=== PATIENT | male | born 1950 | race Caucasian/White ===

== ENCOUNTER 2018-12-18 09:57 | Inpatient (IN) | payer MEDICARE, BC ==
[~2018-12-18 09:57] MED LIST: CEFAZOLIN 1 GM INJ; EPHEDrine 25 MG/5 ML SYG; FENTAnyl 50 MCG/ML VIAL; METOCLOPRAMIDE 10 MG INJ; MIDAZOLAM 1 MG/ML 2 ML INJ; ONDANSETRON 4 MG INJ; PHENYLephrine (100 MCG/ML) 10ML SYG; PROPOFOL 200 MG INJ; ROCURONIUM 50 MG INJ; SUCCINYLCHOLINE CHLORIDE 100 MG/5 ML SYG IV
[2018-12-18] MEDS: LACTATED RINGER'S 1,000 ML IV* (10:00)
[2018-12-18] MEDS: VANCOMYCIN 1 GM 250 ML IVPB (11:30)
[2018-12-18] MEDS ORDERED: GELATIN SIZE 100 SPONGE (11:56)
[2018-12-18] MEDS: D5W-0.45 NACL + KCL 20 MEQ 1,000 ML IV ×2 (12:37→20:37)
[2018-12-18] MEDS ORDERED: VANCOMYCIN 1 GM (PMX) 250 ML IVPB (13:00)
[2018-12-18] MEDS ORDERED: ONDANSETRON 4 MG INJ IV (13:00)
[2018-12-18] MEDS ORDERED: NALOXONE (0.4 MG/ML) INJ IV (13:00)
[2018-12-18] MEDS ORDERED: BISACODYL 10 MG SUPP PR (13:00)
[2018-12-18] MEDS ORDERED: ACETAMINOPHEN 325 MG TAB PO (13:00)
[2018-12-18] MEDS ORDERED: AL HYDROX/MG HYDROX/SIMETH 30 ML CUP PO (13:00)
[2018-12-18] MEDS ORDERED: DIPHENHYDRAMINE 25 MG CAP PO (13:00)
[2018-12-18] MEDS ORDERED: HYDROmorphONE 0.5 MG/0.5 ML SYG IV (13:00)
[2018-12-18] MEDS ORDERED: DIPHENHYDRAMINE 50 MG INJ IV ×2 (13:00→15:00)
[2018-12-18] MEDS ORDERED: FENTAnyl 50 MCG/ML VIAL (13:02)
[2018-12-18] MEDS ORDERED: LABETALOL HCL 20MG INJ (13:02)
[2018-12-18] MEDS: BUPIVACAINE 0.25%/EPI (SDV) 30 ML INJ (13:32)
[2018-12-18] MEDS: POLYMYXIN/BACITRACIN 1L IRRIG (13:42)
[2018-12-18] MEDS: THROMBIN (BOVINE) 5,000 UNIT VIAL TP (13:43)
[2018-12-18] MEDS: SURGIFOAM POWDER 1 GM KIT (13:43)
[2018-12-18] MEDS ORDERED: KETOROLAC 30 MG INJ (14:22)
[2018-12-18] MEDS ORDERED: ONDANSETRON 4 MG INJ (14:22)
[2018-12-18] MEDS ORDERED: METOCLOPRAMIDE 10 MG INJ (14:22)
[2018-12-18] MEDS ORDERED: DEXAMETHASONE 4 MG/ML 5 ML INJ (14:22)
[2018-12-18] MEDS ORDERED: SUGAMMADEX SODIUM 200 MG/2 ML VIAL IV (14:48)
[2018-12-18] MEDS ORDERED: LABETALOL HCL 20MG INJ IV (15:00)
[2018-12-18] MEDS ORDERED: OXYCODONE/ACETAMINOPHEN (5/325) TAB PO (15:00)
[2018-12-18] MEDS ORDERED: FENTAnyl 50 MCG/ML VIAL IV ×2 (15:00)
[2018-12-18] MEDS ORDERED: METOCLOPRAMIDE 10 MG INJ IV (15:00)
[2018-12-18] MEDS ORDERED: hydrALAzine 20 MG INJ IV (15:00)
[2018-12-18] MEDS ORDERED: HYDROmorphONE 1 MG/5 ML IV SYRINGE IV ×3 (15:00)
[2018-12-18] MEDS ORDERED: EPHEDrine SULFATE 50 MG/5 ML SYG IV (15:00)
[2018-12-18] MEDS: MEPERIDINE 25 MG INJ IV (16:15)
[2018-12-18] MEDS: ONDANSETRON 4 MG INJ IV (16:44)
[2018-12-18] MEDS: FENTAnyl 50 MCG/ML VIAL IV (16:45)
[2018-12-18] MEDS: HYDROmorphONE 0.2 MG/ML PCA IV (16:54)
[2018-12-18] MEDS: DOCUSATE SODIUM 100 MG CAP PO (20:37)
[2018-12-18] MEDS: CEPASTAT LOZENGE MT (20:37)
[2018-12-18] MEDS ORDERED: DOCUSATE SODIUM 100 MG CAP PO (21:00)
[2018-12-18] MEDS: MIRTAZAPINE 15 MG TAB PO (23:03)
[2018-12-18] MEDS: GABAPENTIN 300 MG CAP PO (23:03)
[2018-12-18] MEDS: VANCOMYCIN 1 GM (PMX) 250 ML IVPB (23:04)
[2018-12-18] MEDS: ATORVASTATIN 10 MG TAB PO (23:57)
[2018-12-19] MEDS: HYDROmorphONE 0.2 MG/ML PCA IV ×3 (03:40→22:32)
[2018-12-19] MEDS: PANTOPRAZOLE (EC) 40 MG TAB PO (04:44)
[2018-12-19] MEDS: LEVOTHYROXINE 125 MCG TAB PO (04:45)
[2018-12-19 05:08] LABS: ADD MAN DIFF? NO
[2018-12-19 05:11] LABS: BASOPHILS % 0.3 % (0.0-2.0); EOSINOPHILS # 0.1 10^3/ul (0.0-0.5); EOSINOPHILS % 0.8 % (0.0-7.0); HEMATOCRIT 33.8 % (42.0-52.0); HEMOGLOBIN 11.4 g/dl (14.0-18.0); LYMPHOCYTES # 1.1 10^3/ul (0.8-2.9); MEAN CORPUSCULAR HEMOGLOBIN 31.2 pg (29.0-33.0); MEAN CORPUSCULAR HGB CONC 33.7 g/dl (32.0-37.0); MEAN CORPUSCULAR VOLUME 92.6 fl (82.0-101.0); MEAN PLATELET VOLUME 8.6 fl (7.4-10.4); MONOCYTE # 0.8 10^3/ul (0.3-0.9); MONOCYTES % 10.9 % (0.0-11.0); NEUTROPHIL # 5.7 10^3/ul (1.6-7.5); NEUTROPHILS % 73.7 % (39.0-77.0); PLATELET COUNT 160 10^3/UL (140-415); RED BLOOD COUNT 3.65 10^6/ul (4.70-6.10); RED CELL DISTRIBUTION WIDTH 14.1 % (11.5-14.5)
[2018-12-19 05:11] LABS: WHITE BLOOD COUNT 7.7 10^3/ul (4.8-10.8)
[2018-12-19 05:36] LABS: ANION GAP 2 (5-13); BLOOD UREA NITROGEN 22 mg/dl (7-20); CALCIUM 8.4 mg/dl (8.4-10.2); CARBON DIOXIDE 31 mmol/L (21-31); CHLORIDE 107 mmol/L (97-110); CREATININE 0.79 mg/dl (0.61-1.24); Estimated GFR > 60 mL/min (>60); GLUCOSE 117 mg/dl (70-220); POTASSIUM 4.4 mmol/L (3.5-5.1); SODIUM 140 mmol/L (135-144)
[2018-12-19] MEDS ORDERED: DESFLURANE 15 MIN (07:00)
[2018-12-19] MEDS ORDERED: CA CHLORIDE (GM) 10% 10 ML INJ (07:03)
[2018-12-19] MEDS ORDERED: CEFAZOLIN 1 GM INJ ×2 (07:03→07:09)
[2018-12-19] MEDS ORDERED: POLYMYXIN/BACITRACIN 1L IRRIG (07:03)
[2018-12-19] MEDS ORDERED: ROCURONIUM 50 MG INJ (07:09)
[2018-12-19] MEDS ORDERED: GLYCOPYRROLATE 0.4 MG INJ (07:09)
[2018-12-19] MEDS ORDERED: PROPOFOL 20 ML (07:09)
[2018-12-19] MEDS ORDERED: NEOSTIGMINE 3 MG/3 ML SYRINGE (07:09)
[2018-12-19] MEDS ORDERED: MIDAZOLAM 1 MG/ML 2 ML INJ (07:10)
[2018-12-19] MEDS ORDERED: DEXAMETHASONE 4 MG/ML 5 ML INJ (07:10)
[2018-12-19] MEDS ORDERED: ONDANSETRON 4 MG INJ (07:10)
[2018-12-19] MEDS ORDERED: MIDAZOLAM 1 MG/ML 2 ML INJ IV (07:30)
[2018-12-19] MEDS ORDERED: HYDROmorphONE 1 MG/5 ML IV SYRINGE IV ×3 (07:30)
[2018-12-19] MEDS ORDERED: IPRATROPIUM (NEB) 0.5 MG/2.5 ML AMP HHN (07:30)
[2018-12-19] MEDS ORDERED: DIPHENHYDRAMINE 50 MG INJ IV (07:30)
[2018-12-19] MEDS ORDERED: TRIMETHOBENZAMIDE 100 MG/ML VIAL IM (07:30)
[2018-12-19] MEDS ORDERED: OXYCODONE/ACETAMINOPHEN (5/325) TAB PO ×2 (07:30)
[2018-12-19] MEDS ORDERED: FENTAnyl 50 MCG/ML VIAL IV ×2 (07:30)
[2018-12-19] MEDS ORDERED: LABETALOL HCL 20MG INJ IV (07:30)
[2018-12-19] MEDS ORDERED: hydrALAzine 20 MG INJ IV (07:30)
[2018-12-19] MEDS ORDERED: ALBUTEROL 0.083% (NEB) 2.5 MG/3 ML AMP HHN (07:30)
[2018-12-19] MEDS ORDERED: EPHEDrine SULFATE 50 MG/5 ML SYG IV (07:30)
[2018-12-19] MEDS: D5W-0.45 NACL + KCL 20 MEQ 1,000 ML IV ×3 (08:37→20:18)
[2018-12-19] MEDS ORDERED: hydrALAzine 20 MG INJ (08:37)
[2018-12-19] MEDS: ARIPIPRAZOLE 5 MG TAB PO (09:00)
[2018-12-19] MEDS: DOCUSATE SODIUM 100 MG CAP PO ×2 (09:00→20:19)
[2018-12-19] MEDS: GABAPENTIN 300 MG CAP PO ×2 (09:00→20:20)
[2018-12-19] MEDS: BUPIVACAINE 0.25%/EPI (SDV) 30 ML INJ (09:24)
[2018-12-19] MEDS: GELATIN SIZE 100 SPONGE (09:24)
[2018-12-19] MEDS: HEPARIN 1000 UNITS/ML 10 ML INJ (09:24)
[2018-12-19] MEDS: THROMBIN (BOVINE) 5,000 UNIT VIAL TP ×3 (09:25→12:19)
[2018-12-19] MEDS: VANCOMYCIN 1 GM INJ (09:25)
[2018-12-19] MEDS: SURGIFOAM POWDER 1 GM KIT ×2 (09:26→12:18)
[2018-12-19] MEDS: VANCOMYCIN 1 GM (PMX) 250 ML IVPB ×2 (11:00→20:19)
[2018-12-19] MEDS ORDERED: ALBUMIN HUMAN 5% 500 ML (13:19)
[2018-12-19] MEDS ORDERED: SUGAMMADEX SODIUM 200 MG/2 ML VIAL IV (13:35)
[2018-12-19] MEDS ORDERED: METOCLOPRAMIDE 10 MG INJ (13:37)
[2018-12-19] MEDS ORDERED: ACETAMINOPHEN 325 MG TAB PO (14:00)
[2018-12-19] MEDS ORDERED: NALOXONE (0.4 MG/ML) INJ IV (14:00)
[2018-12-19] MEDS ORDERED: VANCOMYCIN 1 GM (PMX) 250 ML IVPB (14:00)
[2018-12-19] MEDS: MEPERIDINE 25 MG INJ IV (14:09)
[2018-12-19] MEDS: ONDANSETRON 4 MG INJ IV (14:10)
[2018-12-19] MEDS: FENTAnyl 50 MCG/ML VIAL IV ×2 (14:27→14:32)
[2018-12-19] MEDS: MIRTAZAPINE 15 MG TAB PO (20:20)
[2018-12-19] MEDS: ATORVASTATIN 10 MG TAB PO (20:20)
[2018-12-19] MEDS: CYCLOBENZAPRINE 10 MG TAB PO (21:43)
[2018-12-19] MEDS: LORAZEPAM 1 MG TAB PO (22:09)
[2018-12-19] MEDS: HYDROmorphONE 0.5 MG/0.5 ML SYG IV (22:20)
[2018-12-20] MEDS: LEVOTHYROXINE 125 MCG TAB PO (05:20)
[2018-12-20] MEDS: PANTOPRAZOLE (EC) 40 MG TAB PO (05:20)
[2018-12-20 05:22] LABS: ADD MAN DIFF? NO
[2018-12-20] MEDS: HYDROmorphONE 0.2 MG/ML PCA IV ×5 (05:22→23:22)
[2018-12-20 05:27] LABS: BASOPHILS % 0.4 % (0.0-2.0); EOSINOPHILS # 0.2 10^3/ul (0.0-0.5); EOSINOPHILS % 2.4 % (0.0-7.0); HEMATOCRIT 29.8 % (42.0-52.0); HEMOGLOBIN 9.7 g/dl (14.0-18.0); LYMPHOCYTES # 1.2 10^3/ul (0.8-2.9); LYMPHOCYTES % 14.4 % (15.0-51.0); MEAN CORPUSCULAR HEMOGLOBIN 31.1 pg (29.0-33.0); MEAN CORPUSCULAR HGB CONC 32.6 g/dl (32.0-37.0); MEAN CORPUSCULAR VOLUME 95.5 fl (82.0-101.0); MONOCYTE # 0.9 10^3/ul (0.3-0.9); MONOCYTES % 10.8 % (0.0-11.0); NEUTROPHILS % 71.5 % (39.0-77.0); PLATELET COUNT 135 10^3/UL (140-415); RED BLOOD COUNT 3.12 10^6/ul (4.70-6.10); RED CELL DISTRIBUTION WIDTH 14.7 % (11.5-14.5)
[2018-12-20 05:27] LABS: WHITE BLOOD COUNT 8.4 10^3/ul (4.8-10.8)
[2018-12-20 05:42] LABS: ANION GAP 2 (5-13); BLOOD UREA NITROGEN 14 mg/dl (7-20); CALCIUM 8.3 mg/dl (8.4-10.2); CARBON DIOXIDE 32 mmol/L (21-31); CHLORIDE 105 mmol/L (97-110); CREATININE 0.84 mg/dl (0.61-1.24); Estimated GFR > 60 mL/min (>60); GLUCOSE 122 mg/dl (70-220); MAGNESIUM 1.8 mg/dl (1.7-2.5); POTASSIUM 4.1 mmol/L (3.5-5.1); SODIUM 139 mmol/L (135-144)
[2018-12-20] MEDS: GABAPENTIN 300 MG CAP PO ×2 (09:24→20:30)
[2018-12-20] MEDS: DOCUSATE SODIUM 100 MG CAP PO ×2 (09:24→20:32)
[2018-12-20] MEDS: ARIPIPRAZOLE 5 MG TAB PO (09:24)
[2018-12-20] MEDS: D5W-0.45 NACL + KCL 20 MEQ 1,000 ML IV ×2 (09:24→19:57)
[2018-12-20] MEDS: VANCOMYCIN 1 GM (PMX) 250 ML IVPB (09:24)
[2018-12-20] MEDS: TESTOSTERONE 1% GEL 5 GM PACKET TOP (09:25)
[2018-12-20] MEDS: MODAFINIL 200 MG TAB PO (12:00)
[2018-12-20] MEDS: ONDANSETRON 4 MG INJ IV (17:21)
[2018-12-20] MEDS: CYCLOBENZAPRINE 10 MG TAB PO (18:57)
[2018-12-20] MEDS: MIRTAZAPINE 15 MG TAB PO (20:30)
[2018-12-20] MEDS: ATORVASTATIN 10 MG TAB PO (20:31)
[2018-12-20] MEDS: DIPHENHYDRAMINE 25 MG CAP PO (20:31)
[2018-12-20] MEDS: LORAZEPAM 1 MG TAB PO (23:19)
[2018-12-21] MEDS: CEPASTAT LOZENGE MT (04:54)
[2018-12-21] MEDS: PANTOPRAZOLE (EC) 40 MG TAB PO (04:55)
[2018-12-21] MEDS: CYCLOBENZAPRINE 10 MG TAB PO ×2 (04:55→12:55)
[2018-12-21] MEDS: LEVOTHYROXINE 125 MCG TAB PO (05:00)
[2018-12-21 05:01] LABS: ADD MAN DIFF? NO
[2018-12-21] MEDS: D5W-0.45 NACL + KCL 20 MEQ 1,000 ML IV ×2 (05:01→15:37)
[2018-12-21 05:10] LABS: WHITE BLOOD COUNT 8.5 10^3/ul (4.8-10.8)
[2018-12-21 05:10] LABS: BASOPHILS % 0.4 % (0.0-2.0); EOSINOPHILS # 0.3 10^3/ul (0.0-0.5); EOSINOPHILS % 3.7 % (0.0-7.0); HEMATOCRIT 28.4 % (42.0-52.0); HEMOGLOBIN 9.4 g/dl (14.0-18.0); LYMPHOCYTES # 0.9 10^3/ul (0.8-2.9); LYMPHOCYTES % 10.4 % (15.0-51.0); MEAN CORPUSCULAR HEMOGLOBIN 31.8 pg (29.0-33.0); MEAN CORPUSCULAR HGB CONC 33.1 g/dl (32.0-37.0); MEAN CORPUSCULAR VOLUME 95.9 fl (82.0-101.0); MEAN PLATELET VOLUME 8.8 fl (7.4-10.4); MONOCYTE # 0.8 10^3/ul (0.3-0.9); NEUTROPHIL # 6.4 10^3/ul (1.6-7.5); PLATELET COUNT 127 10^3/UL (140-415); RED BLOOD COUNT 2.96 10^6/ul (4.70-6.10); RED CELL DISTRIBUTION WIDTH 14.4 % (11.5-14.5)
[2018-12-21 05:25] LABS: ANION GAP 2 (5-13); BLOOD UREA NITROGEN 9 mg/dl (7-20); CALCIUM 8.8 mg/dl (8.4-10.2); CARBON DIOXIDE 33 mmol/L (21-31); CHLORIDE 101 mmol/L (97-110); CREATININE 0.72 mg/dl (0.61-1.24); Estimated GFR > 60 mL/min (>60); GLUCOSE 113 mg/dl (70-220); MAGNESIUM 1.9 mg/dl (1.7-2.5); POTASSIUM 4.1 mmol/L (3.5-5.1); SODIUM 136 mmol/L (135-144)
[2018-12-21] MEDS: DOCUSATE SODIUM 100 MG CAP PO ×2 (08:49→20:27)
[2018-12-21] MEDS: ARIPIPRAZOLE 5 MG TAB PO (08:49)
[2018-12-21] MEDS: GABAPENTIN 300 MG CAP PO ×2 (08:49→20:27)
[2018-12-21] MEDS: MODAFINIL 200 MG TAB PO (08:49)
[2018-12-21] MEDS: TESTOSTERONE 1% GEL 5 GM PACKET TOP (09:33)
[2018-12-21] MEDS: OXYCODONE/ACETAMINOPHEN (10/325) TAB PO ×4 (09:55→23:44)
[2018-12-21 11:00] LABS: AADO2 Arterial 69.5 mmHg (7.0-24.0); Allen Test ACCEPTAB; Arterial Blood Gas Oxygen Sat 93.3 mmHG (95.0-98.0); Arterial COHb 0.3 % (0.0-3.0); Arterial Fraction of Oxyhgb 92.7 % (93.0-99.0); Arterial HCO3 28.3 mmol/L (22.0-26.0); Arterial MetHb 0.3 % (0.0-1.5); Arterial pCO2 46.8 mmhg (35-45); MODE NASAL CANNULA; Site Right Radial
[2018-12-21] MEDS: BETHANECHOL 25 MG TAB PO (16:25)
[2018-12-21 16:53] LABS: CREATINE KINASE 855 IU/L (23-200)
[2018-12-21 17:11] LABS: CK INDEX 0.2; CK-MB 1.85 ng/ml (0.0-2.4)
[2018-12-21] MEDS: SOD CHLORIDE 0.9% 100 ML (19:24)
[2018-12-21] MEDS: IOHEXOL 300MG/ML 150 ML BTL (19:24)
[2018-12-21] MEDS: ATORVASTATIN 10 MG TAB PO (20:27)
[2018-12-21] MEDS: MIRTAZAPINE 15 MG TAB PO (20:27)
[2018-12-21] MEDS: DIPHENHYDRAMINE 25 MG CAP PO (20:32)
[2018-12-21] MEDS ORDERED: HEPARIN 1000 UNITS/ML 10 ML INJ IV ×2 (22:00)
[2018-12-21 22:21] LABS: ADD MAN DIFF? NO
[2018-12-21 22:23] LABS: BASOPHILS % 0.5 % (0.0-2.0); EOSINOPHILS # 0.3 10^3/ul (0.0-0.5); EOSINOPHILS % 5.1 % (0.0-7.0); HEMATOCRIT 24.8 % (42.0-52.0); HEMOGLOBIN 8.2 g/dl (14.0-18.0); MEAN CORPUSCULAR HEMOGLOBIN 31.2 pg (29.0-33.0); MEAN CORPUSCULAR HGB CONC 33.1 g/dl (32.0-37.0); MEAN CORPUSCULAR VOLUME 94.3 fl (82.0-101.0); MEAN PLATELET VOLUME 8.9 fl (7.4-10.4); MONOCYTE # 0.6 10^3/ul (0.3-0.9); MONOCYTES % 9.6 % (0.0-11.0); NEUTROPHIL # 4.1 10^3/ul (1.6-7.5); NEUTROPHILS % 67.3 % (39.0-77.0); PLATELET COUNT 122 10^3/UL (140-415); RED BLOOD COUNT 2.63 10^6/ul (4.70-6.10)
[2018-12-21 22:23] LABS: WHITE BLOOD COUNT 6.1 10^3/ul (4.8-10.8)
[2018-12-21 22:43] LABS: INR 1.12; PROTIME 14.5 Sec (11.9-14.9); PT RATIO 1.1
[2018-12-21 22:44] LABS: PARTIAL THROMBOPLASTIN TIME 39.1 Sec (23.0-35.0)
[2018-12-21] MEDS: HEPARIN 1000 UNITS/ML 10 ML INJ IV (22:59)
[2018-12-21] MEDS: HEPARIN 25000 UNITS/250 ML 250 ML IV (23:29)
[2018-12-22] MEDS: D5W-0.45 NACL + KCL 20 MEQ 1,000 ML IV ×4 (01:16→21:28)
[2018-12-22] MEDS: PANTOPRAZOLE (EC) 40 MG TAB PO (05:20)
[2018-12-22] MEDS: OXYCODONE/ACETAMINOPHEN (10/325) TAB PO ×3 (05:24→16:46)
[2018-12-22 06:12] LABS: ADD MAN DIFF? NO
[2018-12-22 06:23] LABS: BASOPHILS % 0.3 % (0.0-2.0); EOSINOPHILS # 0.3 10^3/ul (0.0-0.5); EOSINOPHILS % 5.6 % (0.0-7.0); HEMOGLOBIN 8.4 g/dl (14.0-18.0); LYMPHOCYTES # 1.2 10^3/ul (0.8-2.9); LYMPHOCYTES % 20.4 % (15.0-51.0); MEAN CORPUSCULAR HEMOGLOBIN 31.3 pg (29.0-33.0); MEAN CORPUSCULAR HGB CONC 33.6 g/dl (32.0-37.0); MEAN CORPUSCULAR VOLUME 93.3 fl (82.0-101.0); MEAN PLATELET VOLUME 8.9 fl (7.4-10.4); MONOCYTE # 0.7 10^3/ul (0.3-0.9); NEUTROPHIL # 3.8 10^3/ul (1.6-7.5); PLATELET COUNT 133 10^3/UL (140-415); RED BLOOD COUNT 2.68 10^6/ul (4.70-6.10)
[2018-12-22 06:23] LABS: WHITE BLOOD COUNT 6.1 10^3/ul (4.8-10.8)
[2018-12-22 06:53] LABS: ANION GAP 3 (5-13); BLOOD UREA NITROGEN 8 mg/dl (7-20); CALCIUM 8.6 mg/dl (8.4-10.2); CARBON DIOXIDE 33 mmol/L (21-31); CHLORIDE 102 mmol/L (97-110); CREATININE 0.78 mg/dl (0.61-1.24); Estimated GFR > 60 mL/min (>60); GLUCOSE 131 mg/dl (70-220); MAGNESIUM 2.1 mg/dl (1.7-2.5); POTASSIUM 3.3 mmol/L (3.5-5.1); SODIUM 138 mmol/L (135-144)
[2018-12-22 07:04] LABS: PARTIAL THROMBOPLASTIN TIME 129.7 Sec (23.0-35.0)
[2018-12-22 07:12] LABS: AADO2 Arterial 68.9 mmHg (7.0-24.0); Allen Test ACCEPTAB; Arterial Base Excess 4.6 mmol/L (-3.0-3); Arterial Blood Gas Oxygen Sat 94.5 mmHG (95.0-98.0); Arterial COHb 0.3 % (0.0-3.0); Arterial Fraction of Oxyhgb 93.9 % (93.0-99.0); Arterial HCO3 28.7 mmol/L (22.0-26.0); Arterial MetHb 0.3 % (0.0-1.5); Arterial pCO2 40.9 mmhg (35-45); MODE NASAL CANNULA; Site Right Radial
[2018-12-22] MEDS: LEVOTHYROXINE 125 MCG TAB PO (07:58)
[2018-12-22] MEDS: DOCUSATE SODIUM 100 MG CAP PO ×2 (08:18→20:45)
[2018-12-22] MEDS: SENNA TAB PO (08:18)
[2018-12-22] MEDS: GABAPENTIN 300 MG CAP PO ×2 (08:18→20:46)
[2018-12-22] MEDS: TESTOSTERONE 1% GEL 5 GM PACKET TOP (09:21)
[2018-12-22] MEDS: ARIPIPRAZOLE 5 MG TAB PO (09:21)
[2018-12-22] MEDS: MODAFINIL 200 MG TAB PO ×2 (10:16→10:37)
[2018-12-22] MEDS: LORAZEPAM 1 MG TAB PO ×2 (10:42→20:47)
[2018-12-22] MEDS: HEPARIN 25000 UNITS/250 ML 250 ML IV (12:40)
[2018-12-22 13:30] LABS: IRON < 10 ug/dl (35-150)
[2018-12-22 13:38] LABS: TOTAL IRON BINDING CAPACITY 214 ug/dl (241-421)
[2018-12-22 14:05] LABS: FERRITIN 92.3 ng/ml (11.1-264.0)
[2018-12-22 14:49] LABS: PARTIAL THROMBOPLASTIN TIME 80.7 Sec (23.0-35.0)
[2018-12-22] MEDS: BISACODYL 10 MG SUPP PR (18:08)
[2018-12-22 20:07] LABS: PARTIAL THROMBOPLASTIN TIME 63.3 Sec (23.0-35.0)
[2018-12-22] MEDS: MIRTAZAPINE 15 MG TAB PO (20:45)
[2018-12-22] MEDS: ATORVASTATIN 10 MG TAB PO (20:46)
[2018-12-22] MEDS: NA PHOSPHATE/BIPHOS 133 ML ENEMA PR (21:30)
[2018-12-22] MEDS: HYDROmorphONE 0.5 MG/0.5 ML SYG IV (22:16)
[2018-12-23] MEDS: OXYCODONE/ACETAMINOPHEN (10/325) TAB PO ×5 (00:19→22:39)
[2018-12-23 04:17] LABS: PARTIAL THROMBOPLASTIN TIME 94.2 Sec (23.0-35.0)
[2018-12-23] MEDS: HEPARIN 25000 UNITS/250 ML 250 ML IV ×2 (04:55→23:04)
[2018-12-23 05:25] LABS: ADD MAN DIFF? NO
[2018-12-23 05:32] LABS: WHITE BLOOD COUNT 4.4 10^3/ul (4.8-10.8)
[2018-12-23 05:32] LABS: BASOPHILS % 0.2 % (0.0-2.0); EOSINOPHILS # 0.3 10^3/ul (0.0-0.5); EOSINOPHILS % 6.7 % (0.0-7.0); HEMATOCRIT 24.4 % (42.0-52.0); HEMOGLOBIN 8.1 g/dl (14.0-18.0); LYMPHOCYTES # 0.9 10^3/ul (0.8-2.9); LYMPHOCYTES % 19.5 % (15.0-51.0); MEAN CORPUSCULAR HEMOGLOBIN 31.2 pg (29.0-33.0); MEAN CORPUSCULAR HGB CONC 33.2 g/dl (32.0-37.0); MEAN CORPUSCULAR VOLUME 93.8 fl (82.0-101.0); MEAN PLATELET VOLUME 8.9 fl (7.4-10.4); MONOCYTE # 0.6 10^3/ul (0.3-0.9); MONOCYTES % 12.6 % (0.0-11.0); NEUTROPHIL # 2.6 10^3/ul (1.6-7.5); NEUTROPHILS % 60.3 % (39.0-77.0); PLATELET COUNT 158 10^3/UL (140-415); RED CELL DISTRIBUTION WIDTH 14.2 % (11.5-14.5)
[2018-12-23 05:53] LABS: ALANINE AMINOTRANSFERASE 36 IU/L (13-69); ALBUMIN 2.6 g/dl (3.3-4.9); ALBUMIN/GLOBULIN RATIO 1.04; ALKALINE PHOSPHATASE 83 IU/L (42-121); ANION GAP 3 (5-13); ASPARTATE AMINO TRANSFERASE 38 IU/L (15-46); BILIRUBIN,INDIRECT 0.3 mg/dl (0-1.1); BILIRUBIN,TOTAL 0.3 mg/dl (0.2-1.3); BLOOD UREA NITROGEN 8 mg/dl (7-20); CALCIUM 8.4 mg/dl (8.4-10.2); CARBON DIOXIDE 31 mmol/L (21-31); CHLORIDE 106 mmol/L (97-110); CREATININE 0.78 mg/dl (0.61-1.24); Estimated GFR > 60 mL/min (>60); GLUCOSE 132 mg/dl (70-220); POTASSIUM 3.7 mmol/L (3.5-5.1); SODIUM 140 mmol/L (135-144); TOTAL PROTEIN 5.1 g/dl (6.1-8.1)
[2018-12-23 06:00] LABS: MAGNESIUM 2.2 mg/dl (1.7-2.5)
[2018-12-23 06:10] LABS: PARTIAL THROMBOPLASTIN TIME 104.8 Sec (23.0-35.0)
[2018-12-23] MEDS: PANTOPRAZOLE (EC) 40 MG TAB PO (06:25)
[2018-12-23] MEDS: LEVOTHYROXINE 125 MCG TAB PO (06:25)
[2018-12-23] MEDS: D5W-0.45 NACL + KCL 20 MEQ 1,000 ML IV (07:35)
[2018-12-23] MEDS ORDERED: NA PHOSPHATE/BIPHOS 133 ML ENEMA PR (09:00)
[2018-12-23] MEDS: FERROUS SULFATE (EC) 325 MG TAB PO ×2 (09:39→20:29)
[2018-12-23] MEDS: GABAPENTIN 300 MG CAP PO ×2 (09:39→20:30)
[2018-12-23] MEDS: ARIPIPRAZOLE 5 MG TAB PO (09:39)
[2018-12-23] MEDS: AL HYDROX/MG HYDROX/SIMETH 30 ML CUP PO (09:39)
[2018-12-23] MEDS: METHYLNALTREXONE 12 MG/0.6 ML VIAL SC (09:39)
[2018-12-23] MEDS: DOCUSATE SODIUM 100 MG CAP PO ×2 (09:39→20:29)
[2018-12-23] MEDS: TESTOSTERONE 1% GEL 5 GM PACKET TOP (10:15)
[2018-12-23] MEDS: MODAFINIL 200 MG TAB PO (10:16)
[2018-12-23] MEDS: HYDROmorphONE 0.5 MG/0.5 ML SYG IV (10:42)
[2018-12-23 14:44] LABS: PARTIAL THROMBOPLASTIN TIME 68.6 Sec (23.0-35.0)
[2018-12-23] MEDS: DIPHENHYDRAMINE 25 MG CAP PO (15:55)
[2018-12-23] MEDS: CYCLOBENZAPRINE 10 MG TAB PO (19:05)
[2018-12-23] MEDS: DIPHENHYDRAMINE 50 MG INJ IV (20:28)
[2018-12-23] MEDS: MIRTAZAPINE 15 MG TAB PO (20:29)
[2018-12-23] MEDS: ATORVASTATIN 10 MG TAB PO (20:29)
[2018-12-23 21:36] LABS: PARTIAL THROMBOPLASTIN TIME 60.9 Sec (23.0-35.0)
[2018-12-24] MEDS: ZOLPIDEM 5 MG TAB PO (00:28)
[2018-12-24] MEDS: DIPHENHYDRAMINE 25 MG CAP PO (00:28)
[2018-12-24] MEDS: CEPASTAT LOZENGE MT (03:41)
[2018-12-24] MEDS: DIPHENHYDRAMINE 50 MG INJ IV ×2 (03:56→20:34)
[2018-12-24] MEDS: OXYCODONE/ACETAMINOPHEN (10/325) TAB PO ×4 (03:59→21:10)
[2018-12-24] MEDS: PANTOPRAZOLE (EC) 40 MG TAB PO (05:58)
[2018-12-24 06:08] LABS: ADD MAN DIFF? NO
[2018-12-24] MEDS: LEVOTHYROXINE 125 MCG TAB PO (06:11)
[2018-12-24 06:21] LABS: BASOPHILS % 0.5 % (0.0-2.0); EOSINOPHILS # 0.4 10^3/ul (0.0-0.5); HEMATOCRIT 25.4 % (42.0-52.0); HEMOGLOBIN 8.6 g/dl (14.0-18.0); LYMPHOCYTES # 1.3 10^3/ul (0.8-2.9); LYMPHOCYTES % 29.7 % (15.0-51.0); MEAN CORPUSCULAR HGB CONC 33.9 g/dl (32.0-37.0); MEAN CORPUSCULAR VOLUME 91.7 fl (82.0-101.0); MONOCYTE # 0.7 10^3/ul (0.3-0.9); MONOCYTES % 15.2 % (0.0-11.0); NEUTROPHILS % 44.9 % (39.0-77.0); PLATELET COUNT 195 10^3/UL (140-415); RED BLOOD COUNT 2.77 10^6/ul (4.70-6.10); RED CELL DISTRIBUTION WIDTH 14.4 % (11.5-14.5)
[2018-12-24 06:21] LABS: WHITE BLOOD COUNT 4.4 10^3/ul (4.8-10.8)
[2018-12-24] MEDS ORDERED: ALBUTEROL 0.083% (NEB) 2.5 MG/3 ML AMP HHN (06:30)
[2018-12-24 06:34] LABS: LACTIC ACID 0.9 mmol/L (0.5-2.0); PARTIAL THROMBOPLASTIN TIME 79.4 Sec (23.0-35.0)
[2018-12-24 06:36] LABS: ANION GAP 6 (5-13); BLOOD UREA NITROGEN 8 mg/dl (7-20); CALCIUM 8.4 mg/dl (8.4-10.2); CARBON DIOXIDE 28 mmol/L (21-31); CHLORIDE 106 mmol/L (97-110); CREATININE 0.76 mg/dl (0.61-1.24); Estimated GFR > 60 mL/min (>60); GLUCOSE 98 mg/dl (70-220); POTASSIUM 3.7 mmol/L (3.5-5.1); SODIUM 140 mmol/L (135-144)
[2018-12-24] MEDS: ALBUTEROL 0.083% (NEB) 2.5 MG/3 ML AMP HHN (06:56)
[2018-12-24] MEDS: HEPARIN 25000 UNITS/250 ML 250 ML IV ×2 (07:14→13:11)
[2018-12-24] MEDS: MODAFINIL 200 MG TAB PO ×2 (09:00→13:13)
[2018-12-24] MEDS: TESTOSTERONE 1% GEL 5 GM PACKET TOP ×2 (09:00→13:13)
[2018-12-24] MEDS: ARIPIPRAZOLE 5 MG TAB PO (09:18)
[2018-12-24] MEDS: DOCUSATE SODIUM 100 MG CAP PO ×2 (09:18→20:35)
[2018-12-24] MEDS: METHYLNALTREXONE 12 MG/0.6 ML VIAL SC (09:18)
[2018-12-24] MEDS: FERROUS SULFATE (EC) 325 MG TAB PO ×2 (09:18→20:36)
[2018-12-24] MEDS: GABAPENTIN 300 MG CAP PO ×2 (09:19→20:36)
[2018-12-24] MEDS: NA PHOSPHATE/BIPHOS 133 ML ENEMA PR (09:19)
[2018-12-24] MEDS: LORAZEPAM 1 MG TAB PO (11:48)
[2018-12-24] MEDS: BISACODYL 10 MG SUPP PR (13:13)
[2018-12-24 14:47] LABS: PARTIAL THROMBOPLASTIN TIME 75.9 Sec (23.0-35.0)
[2018-12-24] MEDS: LACTULOSE 30ML CUP PO ×2 (15:13→22:00)
[2018-12-24] MEDS: MIRTAZAPINE 15 MG TAB PO (20:35)
[2018-12-24] MEDS: ATORVASTATIN 10 MG TAB PO (20:36)
[2018-12-24 20:56] LABS: PARTIAL THROMBOPLASTIN TIME 75.6 Sec (23.0-35.0)
[2018-12-25] MEDS: OXYCODONE/ACETAMINOPHEN (10/325) TAB PO ×2 (01:50→16:47)
[2018-12-25] MEDS: DIPHENHYDRAMINE 25 MG CAP PO ×2 (01:50→11:08)
[2018-12-25] MEDS: LORAZEPAM 1 MG TAB PO ×2 (03:13→11:42)
[2018-12-25] MEDS: PANTOPRAZOLE (EC) 40 MG TAB PO (05:30)
[2018-12-25] MEDS: LACTULOSE 30ML CUP PO (05:30)
[2018-12-25] MEDS: LEVOTHYROXINE 125 MCG TAB PO (06:16)
[2018-12-25 06:26] LABS: ADD MAN DIFF? NO
[2018-12-25 06:40] LABS: WHITE BLOOD COUNT 6.2 10^3/ul (4.8-10.8)
[2018-12-25 06:40] LABS: BASOPHILS % 0.5 % (0.0-2.0); EOSINOPHILS # 0.4 10^3/ul (0.0-0.5); HEMATOCRIT 32.3 % (42.0-52.0); HEMOGLOBIN 10.8 g/dl (14.0-18.0); LYMPHOCYTES # 1.7 10^3/ul (0.8-2.9); MEAN CORPUSCULAR HEMOGLOBIN 30.9 pg (29.0-33.0); MEAN CORPUSCULAR HGB CONC 33.4 g/dl (32.0-37.0); MEAN CORPUSCULAR VOLUME 92.3 fl (82.0-101.0); MEAN PLATELET VOLUME 9.1 fl (7.4-10.4); MONOCYTE # 0.7 10^3/ul (0.3-0.9); MONOCYTES % 11.5 % (0.0-11.0); NEUTROPHIL # 3.2 10^3/ul (1.6-7.5); PLATELET COUNT 274 10^3/UL (140-415); RED CELL DISTRIBUTION WIDTH 14.6 % (11.5-14.5)
[2018-12-25 06:40] LABS: PARTIAL THROMBOPLASTIN TIME 49.2 Sec (23.0-35.0)
[2018-12-25 07:15] LABS: ANION GAP 9 (5-13); BLOOD UREA NITROGEN 11 mg/dl (7-20); CALCIUM 9.3 mg/dl (8.4-10.2); CARBON DIOXIDE 30 mmol/L (21-31); CHLORIDE 103 mmol/L (97-110); CREATININE 0.86 mg/dl (0.61-1.24); Estimated GFR > 60 mL/min (>60); GLUCOSE 124 mg/dl (70-220); POTASSIUM 3.3 mmol/L (3.5-5.1); SODIUM 142 mmol/L (135-144)
[2018-12-25] MEDS: METHYLNALTREXONE 12 MG/0.6 ML VIAL SC (09:20)
[2018-12-25] MEDS: GABAPENTIN 300 MG CAP PO ×2 (09:21→21:06)
[2018-12-25] MEDS: FERROUS SULFATE (EC) 325 MG TAB PO ×2 (09:21→21:06)
[2018-12-25] MEDS: ARIPIPRAZOLE 5 MG TAB PO (09:21)
[2018-12-25] MEDS: DOCUSATE SODIUM 100 MG CAP PO ×2 (09:21→21:07)
[2018-12-25] MEDS: TESTOSTERONE 1% GEL 5 GM PACKET TOP (10:51)
[2018-12-25] MEDS: MODAFINIL 200 MG TAB PO (10:51)
[2018-12-25] MEDS: HYDROmorphONE 0.5 MG/0.5 ML SYG IV (11:09)
[2018-12-25] MEDS: APIXABAN 5 MG TABLET PO ×2 (16:43→21:00)
[2018-12-25 18:46] LABS: INR 1.06; PROTIME 13.9 Sec (11.9-14.9); PT RATIO 1.1
[2018-12-25 19:12] LABS: PARTIAL THROMBOPLASTIN TIME 75.7 Sec (23.0-35.0)
[2018-12-25] MEDS: HEPARIN 25000 UNITS/250 ML 250 ML IV (20:19)
[2018-12-25] MEDS: ATORVASTATIN 10 MG TAB PO (21:06)
[2018-12-25] MEDS: MIRTAZAPINE 15 MG TAB PO (21:06)
[2018-12-25] MEDS: ASCORBIC ACID 500 MG TAB PO (21:07)
[2018-12-26] MEDS: OXYCODONE/ACETAMINOPHEN (10/325) TAB PO ×4 (01:22→18:24)
[2018-12-26] MEDS: CYCLOBENZAPRINE 10 MG TAB PO (04:53)
[2018-12-26 05:39] LABS: ADD MAN DIFF? NO
[2018-12-26 05:44] LABS: BASOPHILS % 0.7 % (0.0-2.0); EOSINOPHILS # 0.4 10^3/ul (0.0-0.5); EOSINOPHILS % 7.2 % (0.0-7.0); HEMATOCRIT 29.6 % (42.0-52.0); HEMOGLOBIN 9.8 g/dl (14.0-18.0); LYMPHOCYTES # 1.4 10^3/ul (0.8-2.9); MEAN CORPUSCULAR HGB CONC 33.1 g/dl (32.0-37.0); MEAN CORPUSCULAR VOLUME 93.7 fl (82.0-101.0); MEAN PLATELET VOLUME 8.9 fl (7.4-10.4); MONOCYTE # 0.8 10^3/ul (0.3-0.9); MONOCYTES % 12.7 % (0.0-11.0); NEUTROPHIL # 3.3 10^3/ul (1.6-7.5); NEUTROPHILS % 54.4 % (39.0-77.0); PLATELET COUNT 269 10^3/UL (140-415); RED BLOOD COUNT 3.16 10^6/ul (4.70-6.10); RED CELL DISTRIBUTION WIDTH 14.6 % (11.5-14.5)
[2018-12-26 06:15] LABS: ANION GAP 6 (5-13); BLOOD UREA NITROGEN 12 mg/dl (7-20); CALCIUM 8.7 mg/dl (8.4-10.2); CARBON DIOXIDE 28 mmol/L (21-31); CHLORIDE 105 mmol/L (97-110); CREATININE 0.77 mg/dl (0.61-1.24); Estimated GFR > 60 mL/min (>60); GLUCOSE 96 mg/dl (70-220); POTASSIUM 4.8 mmol/L (3.5-5.1); SODIUM 139 mmol/L (135-144)
[2018-12-26 06:15] LABS: MAGNESIUM 2.4 mg/dl (1.7-2.5)
[2018-12-26] MEDS: PANTOPRAZOLE (EC) 40 MG TAB PO (06:44)
[2018-12-26] MEDS: LEVOTHYROXINE 125 MCG TAB PO (06:44)
[2018-12-26] MEDS: ARIPIPRAZOLE 5 MG TAB PO (08:52)
[2018-12-26] MEDS: APIXABAN 5 MG TABLET PO ×2 (08:52→21:19)
[2018-12-26] MEDS: GABAPENTIN 300 MG CAP PO ×2 (08:52→21:18)
[2018-12-26] MEDS: DOCUSATE SODIUM 100 MG CAP PO ×2 (08:52→21:19)
[2018-12-26] MEDS: ASCORBIC ACID 500 MG TAB PO ×2 (08:52→21:19)
[2018-12-26] MEDS: METHYLNALTREXONE 12 MG/0.6 ML VIAL SC (08:53)
[2018-12-26] MEDS: FERROUS SULFATE (EC) 325 MG TAB PO ×2 (08:53→21:19)
[2018-12-26] MEDS: MODAFINIL 200 MG TAB PO (10:08)
[2018-12-26] MEDS: TESTOSTERONE 1% GEL 5 GM PACKET TOP ×2 (10:30→18:30)
[2018-12-26] MEDS: DICLOFENAC SODIUM 1% GEL 100 GM TUBE TP ×3 (12:20→21:23)
[2018-12-26] MEDS: LORAZEPAM 1 MG TAB PO (12:21)
[2018-12-26] MEDS: ONDANSETRON 4 MG INJ IV (19:56)
[2018-12-26] MEDS: MIRTAZAPINE 15 MG TAB PO (21:18)
[2018-12-26] MEDS: ATORVASTATIN 10 MG TAB PO (21:19)
[2018-12-26] MEDS: DIPHENHYDRAMINE 25 MG CAP PO (23:15)
[2018-12-26] MEDS: HYDROmorphONE 0.5 MG/0.5 ML SYG IV (23:15)
[2018-12-27] MEDS: HYDROmorphONE 0.5 MG/0.5 ML SYG IV ×3 (01:51→05:58)
[2018-12-27] MEDS: CYCLOBENZAPRINE 10 MG TAB PO (04:11)
[2018-12-27] MEDS: PANTOPRAZOLE (EC) 40 MG TAB PO (05:58)
[2018-12-27] MEDS: LORAZEPAM 1 MG TAB PO (05:58)
[2018-12-27] MEDS: LEVOTHYROXINE 125 MCG TAB PO (06:03)
[2018-12-27] MEDS: GABAPENTIN 300 MG CAP PO ×2 (09:46→20:21)
[2018-12-27] MEDS: ARIPIPRAZOLE 5 MG TAB PO (09:47)
[2018-12-27] MEDS: APIXABAN 5 MG TABLET PO ×2 (09:48→20:20)
[2018-12-27] MEDS: MODAFINIL 200 MG TAB PO (09:49)
[2018-12-27] MEDS: FERROUS SULFATE (EC) 325 MG TAB PO ×2 (09:51→20:20)
[2018-12-27] MEDS: OXYCODONE/ACETAMINOPHEN (10/325) TAB PO ×3 (09:53→17:10)
[2018-12-27] MEDS: ASCORBIC ACID 500 MG TAB PO ×2 (09:54→20:20)
[2018-12-27] MEDS: DOCUSATE SODIUM 100 MG CAP PO ×2 (09:54→20:20)
[2018-12-27] MEDS: DICLOFENAC SODIUM 1% GEL 100 GM TUBE TP ×4 (09:55→20:21)
[2018-12-27] MEDS: METHYLNALTREXONE 12 MG/0.6 ML VIAL SC (09:56)
[2018-12-27] MEDS: TESTOSTERONE 1% GEL 5 GM PACKET TOP (16:54)
[2018-12-27] MEDS: MIRTAZAPINE 15 MG TAB PO (20:21)
[2018-12-27] MEDS: ATORVASTATIN 10 MG TAB PO (20:21)
[2018-12-28] MEDS: OXYCODONE/ACETAMINOPHEN (10/325) TAB PO ×3 (00:58→11:07)
[2018-12-28] MEDS: LORAZEPAM 1 MG TAB PO (03:55)
[2018-12-28] MEDS: LEVOTHYROXINE 125 MCG TAB PO (06:52)
[2018-12-28] MEDS: PANTOPRAZOLE (EC) 40 MG TAB PO (06:52)
[2018-12-28] MEDS: METHYLNALTREXONE 12 MG/0.6 ML VIAL SC (09:00)
[2018-12-28] MEDS: GABAPENTIN 300 MG CAP PO (09:40)
[2018-12-28] MEDS: ARIPIPRAZOLE 5 MG TAB PO (09:40)
[2018-12-28] MEDS: DOCUSATE SODIUM 100 MG CAP PO (09:40)
[2018-12-28] MEDS: FERROUS SULFATE (EC) 325 MG TAB PO (09:40)
[2018-12-28] MEDS: APIXABAN 5 MG TABLET PO (09:41)
[2018-12-28] MEDS: ASCORBIC ACID 500 MG TAB PO (09:47)
[2018-12-28] MEDS: DICLOFENAC SODIUM 1% GEL 100 GM TUBE TP (11:06)
[2018-12-28] MEDS: MODAFINIL 200 MG TAB PO (11:07)
[2018-12-28] MEDS: TESTOSTERONE 1% GEL 5 GM PACKET TOP (11:08)
[2019-01-03] MEDS ORDERED: APIXABAN 5 MG TABLET PO (07:00)
== END 2018-12-28 13:55 | disposition home or self-care (01) | DRG 456 ==
LOC: ICU 12-21 22:15 → 6WM 12-23 19:28 → REC 09:57 → MS1 12-25 19:49
PROC: 0SG10A0 Fusion of 2 or more Lumbar Vertebral Joints with Interbody Fusion Device, Anterior Approach, Anterior Column, Open Approach (ICD-10-PCS; principal; 2018-12-18 12:00)
PROC: 0ST20ZZ Resection of Lumbar Vertebral Disc, Open Approach (ICD-10-PCS; 2018-12-18 12:00)
PROC: 4A11X4G Monitoring of Peripheral Nervous Electrical Activity, Intraoperative, External Approach (ICD-10-PCS; 2018-12-18 12:00)
PROC: 0SG30A0 Fusion of Lumbosacral Joint with Interbody Fusion Device, Anterior Approach, Anterior Column, Open Approach (ICD-10-PCS; 2018-12-18 12:47)
PROC: 0SG00A0 Fusion of Lumbar Vertebral Joint with Interbody Fusion Device, Anterior Approach, Anterior Column, Open Approach (ICD-10-PCS; 2018-12-18 12:47)
PROC: 0ST40ZZ Resection of Lumbosacral Disc, Open Approach (ICD-10-PCS; 2018-12-18 12:47)
PROC: 0ST20ZZ Resection of Lumbar Vertebral Disc, Open Approach (ICD-10-PCS; 2018-12-18 12:47)
PROC: 4A11X4G Monitoring of Peripheral Nervous Electrical Activity, Intraoperative, External Approach (ICD-10-PCS; 2018-12-18 12:47)
DX: M41.86 Other forms of scoliosis, lumbar region (principal); I26.99 Other pulmonary embolism without acute cor pulmonale; I82.4Z2 Acute embolism and thrombosis of unspecified deep veins of left distal lower extremity; M48.062 Spinal stenosis, lumbar region with neurogenic claudication; E03.9 Hypothyroidism, unspecified; E78.5 Hyperlipidemia, unspecified; K59.03 Drug induced constipation; D50.9 Iron deficiency anemia, unspecified; G47.33 Obstructive sleep apnea (adult) (pediatric); F34.1 Dysthymic disorder; F41.9 Anxiety disorder, unspecified; G62.9 Polyneuropathy, unspecified; E29.1 Testicular hypofunction
CPT/HCPCS: 36600; 71045; 71275; 72100; 72114; 73721; 80048; 80053; 82550; 82553; 82728; 82803; 83540; 83605; 83735; 84484; 85025; 85610; 85730; 86850; 86900; 86901; 86920; 86999; 87081; 87086; 88304; 93005; 93306; 93970; 94664; 97110; 97116; 97162; 97164; 97530